=== PATIENT | female | born 1980 | race African-American/Black ===

== ENCOUNTER 2017-01-15 17:30 | Emergency (ER) | payer BC | END 2017-01-15 20:56 | disposition left against medical advice (07) | LOC: ER 17:30 | DX: G43.909 Migraine, unspecified, not intractable, without status migrainosus (principal); R05 Cough; R06.02 Shortness of breath; Z53.21 Procedure and treatment not carried out due to patient leaving prior to being seen by health care provider | CPT/HCPCS: 93005 ==